=== PATIENT | female | born 1925 | race Asian ===

== ENCOUNTER 2016-06-08 09:36 | Emergency (ER) | payer MEDICARE, MEDICAID ==
[~2016-06-08] VITALS: Wt 54.2 kg
[2016-06-08] MEDS ORDERED: ACET-2047 GTB (10:03)
[2016-06-08] MEDS ORDERED: ALBU2.5V3 NEB (10:04)
[2016-06-08] MEDS ORDERED: ATOR10TA65 GTB (10:04)
[2016-06-08] MEDS ORDERED: ESOM40CA GTB (10:05)
[2016-06-08] MEDS ORDERED: GUAI-352 GTB (10:06)
[2016-06-08] MEDS ORDERED: FER325 GTB (10:06)
[2016-06-08] MEDS ORDERED: LANT3I SC (10:07)
[2016-06-08] MEDS ORDERED: INSU100C SQ (10:08)
[2016-06-08] MEDS ORDERED: LACT1CAP57 GTB (10:09)
[2016-06-08] MEDS ORDERED: LIDO700A45 TP (10:10)
[2016-06-08] MEDS ORDERED: UDREG GTB (10:13)
[2016-06-08] MEDS ORDERED: MULTI GTB (10:14)
--- NOTE | 2016-06-08 10:31 | RADRPT ---
PROCEDURE: CT Brain without contrast. CLINICAL INDICATION: History of recent subarachnoid hemorrhage. Trauma. TECHNIQUE: CT scan of the brain was performed on a multidetector high-resolution CT scan. Axial im aging was obtained of the brain without contrast administration. Coronal and sagittal reformatted i mages were obtained from the axial source images. Standard CT scan of the head without contrast prot ocols were performed. The total exam CTDI equals 44.11 mGy and the total exam DLP equals 630.2 mGy-cm. One or more of the following dose reduction techniques were used: - Automated exposure control. - Adjustment of the mA and/or kV according to patient size. Use of iterative reconstruction technique. COMPARISON: None. FINDINGS: There is metallic density with extensive artifact in the right supraclinoid region consi stent with endovascular coil. 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 Recommend confirmation and comparison with previous s tudies. The ventricular system and peripheral CSF spaces are proportionate prominent consistent wit h moderate generalized cerebral volume loss. There is extensive nonspecific periventricular and sub cortical deep white matter changes consistent with chronic microvascular ischemic disease. Negative for intracranial masses hemorrhages or midline shift. The bones and calvarium are intact. Those po rtions paranasal sinuses and mastoids visualized are unremarkable. IMPRESSION: 1. Metallic density along the right supraclinoid region consistent with avascular coil. Recommend confirmation. 2. Moderate generalized cerebral volume loss and extensive nonspecific chronic microvascular ischem ic changes. 3. Negative for intracranial masses hemorrhages or midline shift. RPTAT:AAJJ Physician Katie Date Time Electronically viewed and signed by Physician Katie on 06/08/2016 10:31 BM/
--- NOTE | 2016-06-08 10:42 | ERD ---
ER Documentation Chief Complaint Date/Time DATE: 06/08/16 TIME: 10:40 Chief Complaint ground level fall this morning. head pain . no loc. no neuro changes HPI 89-year-old female presents to the emergency department by EMT ambulance after a fall and hitting her head. Patient is recently status post a subarachnoid hemorrhage and has been recovering at a care facility. She has been improving, according to the grandson. Today, she went to go to the bathroom using the commode, she had a mechanical fall. She fell back and hit her head, but had no loss of consciousness and has been neurologically unchanged from her baseline since the accident. The grandson also tells me that she has no further evidence of other medical or traumatic complaints at this time. ROS All systems reviewed and are negative except as per history of present illness. Medications Home Meds Reported Medications Multivitamins* (Theragran*) 1 Tab Tab, 1 TAB GTB DAILY, TAB 06/08/16 Metoclopramide* (Reglan*) 10 Mg/10 Ml Soln, 10 MG GTB Q6 Y for NAUSEA AND/OR VOMITING, ML 06/08/16 Lidocaine (Lidocaine) 1 Each Adh..patch, 1 EACH TP DAILY 06/08/16 Lactobacillus Rhamnosus* (Culturelle*) 1 Each Cap.sprink, 1 CAP GTB BID, CAP 06/08/16 Insulin Lispro (Humalog) 100 Unit/1 Ml Cartridge, 0-8 UNIT SQ AC MEALS 06/08/16 Insulin Glargine* (Lantus*) 100 Unit/Ml Soln, 8 UNIT SC QHS, #1 VIAL 06/08/16 Guaifenesin (LAUREL-TUSSIN) 100 Mg/5 Ml Liquid, 200 MG GTB Q4 06/08/16 Ferrous Sulfate* (Ferrous Sulfate*) 325 Mg Tabec, 325 MG GTB DAILY, TAB 06/08/16 Esomeprazole Mag Trihydrate (Nexium) 40 Mg Capsule.dr, 40 MG GTB DAILY, #30 CAP 06/08/16 Atorvastatin Calcium (Atorvastatin Calcium) 10 Mg Tablet, 10 MG GTB QHS, #30 TAB 06/08/16 Albuterol Sulfate* (Albuterol Sulfate* Neb) 0.083%-3 Ml Neb, 1.25 MG NEB Q4H Y for WHEEZING AND SOB, #30 VIAL 06/08/16 Acetaminophen* (Acetaminophen*) 650 Mg Tablet, 650 MG GTB Q4 Y for PAIN AND OR ELEVATED TEMP, #30 TAB 06/08/16 Allergies Allergies: Coded Allergies: codeine (Verified Allergy, Severe, 06/08/16) lactose (Verified Allergy, Severe, 06/08/16) PMhx/Soc Hx Neurological Disorder: Yes (Previous subarachnoid hemorrhage) FmHx Noncontributory for chief complaint Physical Exam Vitals Vital Signs Date Time Temp Pulse Resp B/P Pulse Ox O2 Delivery O2 Flow Rate FiO2 06/08/16 09:47 97.9 66 20 126/72 95 Physical Exam GENERAL: The patient is well developed and appropriate for usual state of health in no apparent distress HEENT: Pupils equal, round, and reactive to light. EOMI. There is no scleral icterus. NECK: C-spine is soft and supple, there is no meningismus. There is no cervical lymphadenopathy. LUNGS: Clear to auscultation bilaterally. There are no rales, wheezes or rhonchi. HEART: Regular rate and rhythm, no murmurs, clicks, rubs or gallops. ABDOMEN: Soft, non-tender, non-distended. There are bowel sounds in all four quadrants. No rebound or guarding. EXTREMITIES: There is no peripheral cyanosis or edema. No focal swelling or erythema. NEURO: The patient moves all four extremities with 5/5 strength. Cranial nerves II - XII are intact. Alert and oriented. Somewhat slow mentation. Patient is at baseline according to the grandson SKIN: There is no apparent rash or petechiae. HEME/LYMPHATIC: There is no evidence of excessive bruising or lymphedema. PSYCHIATRIC: The patient does not appear anxious or depressed. Procedures/MDM Patient was taken to a room, seen and evaluated. Comfort measures were initiated. Diagnostic tests were ordered and reviewed. RADIOLOGY: reviewed with the radiologist REEVALUATION: She remained neurologically at baseline throughout her stay in the ER MEDICAL DECISION MAKIN-year-old female presents after mechanical fall. The main concern of the grandson was that the patient may have re-bled, but her CT scan fortunately shows no evidence of re-hemorrhage. She is at her neurologic baseline with no other symptoms of other high-risk concerns and seems to be appropriate for outpatient care at this time. Departure Diagnosis: Primary Impression: Fall Condition: Stable Patient Instructions: Fall Prevention Referrals: KALEY HUGO MD (PCP) Additional Instructions: Please continue all previous orders. Fall precautions SHYANNE SALDIVAR Jun 08, 2016 10:42
[2016-06-08 10:57] VITALS: BP 154/69; PULSE 66; RESP 18; TEMP 98.6
== END 2016-06-08 11:00 | disposition home or self-care (01) ==
LOC: E/R 09:36
DX: S09.90XA Unspecified injury of head, initial encounter (principal); E11.9 Type 2 diabetes mellitus without complications; R51 Headache; W18.09XA Striking against other object with subsequent fall, initial encounter; Y92.9 Unspecified place or not applicable; Z79.4 Long term (current) use of insulin
CPT/HCPCS: 70450